=== PATIENT | female | born 1995 | race Hispanic/Latino ===

== ENCOUNTER 2017-11-07 20:37 | Emergency (ER) | payer OTHER ==
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
[2017-11-07 21:55] VITALS: BP 103/69; PULSE 79; RESP 17; TEMP 97.6
[2017-11-07 22:20] VITALS: O2SAT 95
== END 2017-11-07 21:46 | disposition home or self-care (01) ==
LOC: H.ER 20:37
DX: S09.90XA Unspecified injury of head, initial encounter (principal); W22.8XXA Striking against or struck by other objects, initial encounter; Y92.480 Sidewalk as the place of occurrence of the external cause